=== PATIENT | female | born 1980 | race Caucasian/White ===

== ENCOUNTER 2017-09-17 08:15 | Emergency (ER) | payer OTHER ==
[~2017-09-17] VITALS: Ht 170.2 cm; Wt 67.1 kg
[2017-09-17] MEDS ORDERED: ONDANSETRON HCL INJ 2 MG/ML VIAL IV STA (08:47)
[2017-09-17] MEDS ORDERED: MORPHINE SULFATE 2 MG/ML SYR IV STA (08:47)
[2017-09-17 09:35] LABS: BILIRUBIN,URINE NEGATIVE (NEGATIVE); CLARITY,URINE CLEAR (CLEAR); COLOR,URINE YELLOW (YELLOW); KETONES,URINE NEGATIVE (NEGATIVE); LEUKOCYTE ESTERASE ,URINE NEGATIVE (NEGATIVE); NITRITE,URINE NEGATIVE (NEGATIVE); PROTEIN,URINE DIPSTICK NEGATIVE (NEGATIVE); URINE UROBILINOGEN 0.2 mg/dL (0.2 - 1)
[2017-09-17 09:35] LABS: BASOPHILS # (AUTO) 0.1 (0.0-0.1); BASOPHILS % 1.1 % (0.0-1.0); EOSINOPHILS # (AUTO) 0.3 (0.0-0.4); EOSINOPHILS % 2.9 % (0.0-6.0); HEMATOCRIT 36.3 % (34.2-44.1); HEMOGLOBIN 11.9 g/dL (12.0-16.0); LYMPHOCYTES # (AUTO) 2.3 (1.0-3.2); LYMPHOCYTES % 22.3 % (18.0-39.1); MEAN CORPUSCULAR HEMOGLOBIN 28.7 pg (28-32); MEAN CORPUSCULAR HGB CONC 32.8 g/dL (31-35); MEAN CORPUSCULAR VOLUME 87.7 fL (81-99); MONOCYTES # (AUTO) 0.9 (0.2-0.8); MONOCYTES % 8.2 % (4.4-11.3); NEUTROPHILS # (AUTO) 6.8 (2.1-6.9); NEUTROPHILS % 65.2 % (38.7-80.0); PLATELET COUNT 368 x10e3/uL (140-360); RED BLOOD COUNT 4.14 x10e6/uL (3.6-5.1); RED CELL DISTRIBUTION WIDTH 13.2 % (11.7-14.4)
[2017-09-17 09:38] LABS: AMPHETAMINES SCREEN,URINE POSITIVE (NEGATIVE); BENZODIAZEPINES SCREEN,URINE NEGATIVE (NEGATIVE); PHENCYCLIDINE SCREEN,URINE NEGATIVE (NEGATIVE)
[2017-09-17 09:39] LABS: PREGNANCY TEST, URINE NEGATIVE (NEGATIVE)
[2017-09-17 09:48] LABS: BACTERIA,URINE RARE /HPF; EPITHELIAL CELLS,URINE FEW /LPF; MUCUS,URINE MANY (RARE); RBC,URINE 0-5 /HPF (0-5); WBC,URINE (MAN) 0-5 /HPF (0-5)
--- NOTE | 2017-09-17 09:51 | Diagnostic Imaging Report ---
Exam: Maxillofacial CT without IV contrast History:Left is ear and head pain "tooth problems" Comparison studies: None Technique: Axial images were obtained through the maxillofacial region. Coronal and sagittal images reconstructed from the axial data. Intravenous contrast: None Findings: Evaluation of the soft tissues is limited in the absence of IV contrast. Dentition: Dental caries with periapical lucencies at the left second and first mandibular molars, medial and lateral mandibular incisors and at the right first maxillary premolar. There is moderate erosion of the mandibular lingual alveolar cortex which overlies the roots of the mandibular incisors. There is also focal cortical erosion of the lingual alveolar cortex which overlies the roots of the left first mandibular molar. Impacted right third mandibular molar. Soft tissues: No gross abnormalities. Bones: See dentition above. No fractures or additional bony abnormalities. Orbits: Globes: Intact Extra or intraconal abnormalities: None. Paranasal sinuses: Scattered nonspecific inflammatory mucosal thickening throughout the ethmoid air cells and small nonspecific secretions in the right maxillary sinus. Middle ear mastoid cavities: Clear. 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 IMPRESSION: 1. Dental caries with multifocal endodontal-periodontal disease as described. Carious left first and second left mandibular molars with periapical abscesses are potential source for referred odontogenic pain. 2. Clear middle ear and mastoid cavities. 3. Incidental mild nonspecific inflammatory changes in the ethmoids and right maxillary sinus. Signed by: Dr. Jett Frey M.D. on 09/17/2017 9:48 AM
[2017-09-17 09:55] LABS: ALANINE AMINOTRANSFERASE 13 IU/L (0-55); ALBUMIN/GLOBULIN RATIO 1.1 (0.8-2.0); ALKALINE PHOSPHATASE 57 IU/L (40-150); ANION GAP 10.6 mmol/L (8-16); BLOOD UREA NITROGEN 11 mg/dL (7-26); BUN/CREATININE RATIO 13 (6-25); CARBON DIOXIDE 25 mmol/L (22-29); CHLORIDE 107 mmol/L (98-107); CREATININE, SERUM 0.83 mg/dL (0.57-1.11); EST GLOMERULAR FILTRATION RATE > 60 ML/MIN (60-); GLUCOSE 89 mg/dL (74-118); POTASSIUM 3.6 mmol/L (3.5-5.1); SODIUM 139 mmol/L (136-145)
[2017-09-17 10:41] VITALS: BP 107/68
== END 2017-09-17 10:55 | disposition home or self-care (01) ==
LOC: ER 08:15
DX: H92.02 Otalgia, left ear (principal); K04.7 Periapical abscess without sinus; F15.10 Other stimulant abuse, uncomplicated; F12.10 Cannabis abuse, uncomplicated
CPT/HCPCS: 36415; 70486; 80053; 80307; 81001; 81025; 85025; 99284; J2270; J2405